=== PATIENT | male | born 1975 | race American Indian/Alaskan Native ===

== ENCOUNTER 2019-02-20 11:12 | Emergency (ER) | payer SELFPAY ==
--- NOTE | 2019-02-20 11:48 | Emergency Department Report ---
Blank Doc - Documentation Documentation: 43-year-old male that presents with right eyelid lac. This initial assessment/diagnostic orders/clinical plan/treatment(s) is/are subject to change based on patient's health status, clinical progression and re- assessment by fellow clinical providers in the ED. Further treatment and workup at subsequent clinical providers discretion. Patient/guardians urged not to elope from the ED as their condition may be serious if not clinically assessed and managed. Initial orders include: 1- Patient sent to [facility] for further evaluation and treatment
[2019-02-20] MEDS ORDERED: TETANUS,DIPH,PERTUSS(ACELL) VACCINE 0.5 ML SYRINGE IM ONE (14:46)
[2019-02-20] MEDS ORDERED: LIDOCAINE (1%) 10 MG/1 ML VIAL 20 ML MDV INFILTRATI ONE (14:46)
--- NOTE | 2019-02-20 15:28 | Emergency Department Report ---
ED General Adult HPI - General Chief complaint: Wound/Laceration Stated complaint: LFT EYE LAC Time Seen by Provider: 02/20/19 11:47 Source: patient Mode of arrival: Ambulatory Limitations: No Limitations - History of Present Illness Initial comments: 43-year-old -[place] male patient presents with complaints of laceration to nose and right face after tripping and falling today. Patient states he did not hit his head, however his glasses cut his face when he fell. He denies the lenses breaking. He rates his pain as 3/10 in severity and denies any possibility of foreign bodies. She admits to right-sided eye pain and photophobia. Patient denies any headaches, vision changes, neck pain, dizziness, syncope, or nausea/vomiting. - Related Data Previous Rx's Medication Instructions Recorded Last Taken Type Acetaminophen/Codeine [Tylenol 1 tab PO Q6H PRN #10 tab 02/20/19 Unknown Rx /Codeine # 3 tab] Erythromycin [Erythromycin Ophth 1 cm OU Q4H 7 Days #1 tube 02/20/19 Unknown Rx Oint] Ibuprofen [Motrin 800 MG tab] 800 mg PO Q8HR PRN #21 tablet 02/20/19 Unknown Rx Allergies Allergy/AdvReac Type Severity Reaction Status Date / Time No Known Allergies Allergy Unverified 02/20/19 11:22 ED Review of Systems ROS: Stated complaint: LFT EYE LAC Other details as noted in HPI ED Past Medical Hx - Past Medical History Previous Medical History?: No - Surgical History Past Surgical History?: No - Social History Smoking Status: Current Every Day Smoker Substance Use Type: Marijuana - Medications Home Medications: Home Medications Medication Instructions Recorded Confirmed Last Taken Type Acetaminophen/Codeine [Tylenol 1 tab PO Q6H PRN #10 tab 02/20/19 Unknown Rx /Codeine # 3 tab] Erythromycin [Erythromycin Ophth 1 cm OU Q4H 7 Days #1 tube 02/20/19 Unknown Rx Oint] Ibuprofen [Motrin 800 MG tab] 800 mg PO Q8HR PRN #21 tablet 02/20/19 Unknown Rx ED Physical Exam - General Limitations: No Limitations General appearance: alert, in no apparent distress - Head Head exam: Absent: atraumatic - Expanded Head Exam Expanded 1 - 3 cm laceration with flap. Leading controlled. No foreign bodies noted. 2 - Second 3 cm long noted with bleeding controlled. No foreign bodies noted in the wound. 3 - Small abrasion noted with bleeding well controlled - Eye Eye exam: Present: normal appearance, PERRL, EOMI, other (approximately 1 cm abrasion noted across lower portion of right pupil) - Expanded Eye Exam Expanded Pupils: Regular, Round: Bilateral Sclera/Conjunctival: Injection: Right ED Course Vital Signs 02/20/19 02/20/19 11:47 13:14 Temperature 97.6 F Pulse Rate 79 Respiratory 18 15 Rate Blood Pressure 132/86 O2 Sat by Pulse 99 Oximetry - Laceration /Wound Repair face Wound Location: face Wound Length (cm): 3 (to 3 cm wounds) Wound's Depth, Shape: linear (3 cm wound below first laceration), flap (3 cm wou nd with flap just below right eye) Irrigated w/ Saline (ccs): 100 Betadine Prep?: Yes Wound Repaired With: Dermabond Sterile Dressing Applied?: Yes Progress: Multiple bleeding during procedure. Patient tolerated procedure well. ED Medical Decision Making - Medical Decision Making Patient presents for multiple lacerations to face after her fall resulted in his metal portion of his glasses cutting his face. Patient also noted to have a corneal abrasion of the right eye. Lacerations repair using Dermabond and steri strips given proximity to lower eyelid. Patient to discharge home with e rythromycin ointment for the corneal abrasion and ophthalmology follow-up. Discussed wound care and signs and symptoms of infection in detail with patient who states understanding. Also discussed strict return precautions with patient who states understanding. Critical care attestation.: If time is entered above; I have spent that time in minutes in the direct care of this critically ill patient, excluding procedure time. ED Disposition Clinical Impression: Facial laceration Qualifiers: Encounter type: initial encounter Qualified Code(s): S01.81XA - Laceration without foreign body of other part of head, initial encounter Right corneal abrasion Qualifiers: Encounter type: initial encounter Qualified Code(s): S05.01XA - Injury of conjunctiva and corneal abrasion without foreign body, right eye, initial encounter Disposition: DC-01 TO HOME OR SELFCARE Is pt being admited?: No Condition: Stable Instructions: Corneal Abrasion (ED), Laceration (ED), Skin Adhesive Care (ED) Prescriptions: Erythromycin [Erythromycin Ophth Oint] 1 cm OU Q4H 7 Days #1 tube Ibuprofen [Motrin 800 MG tab] 800 mg PO Q8HR PRN #21 tablet PRN Reason: Pain, Moderate (4-6) Acetaminophen/Codeine [Tylenol /Codeine # 3 tab] 1 tab PO Q6H PRN #10 tab PRN Reason: Pain , Severe (7-10) Referrals: FLORA DOTY MD [Staff Physician] - 2-3 Days
[2019-02-20] MEDS ORDERED: HYDROGEN PEROXIDE 118 ML SOLUTION TP ONE (16:18)
[2019-02-20] MEDS ORDERED: HYDROGEN PEROXIDE 118 ML SOLUTION ONE (16:20)
[2019-02-20] MEDS ORDERED: FLUORESCEIN 1 MG STRIP OP ONE ×2 (16:35→16:39)
[2019-02-20] MEDS ORDERED: TETRACAINE 0.5% OPHTH SOLN 4ML OU STA (16:35)
[2019-02-20] MEDS ORDERED: TETRACAINE 0.5% OPHTH SOLN 4ML ONE (16:39)
[2019-02-20 17:37] VITALS: BP 140/87
== END 2019-02-20 17:37 | disposition home or self-care (01) ==
LOC: ED 11:12
DX: S01.111A Laceration without foreign body of right eyelid and periocular area, initial encounter (principal); S05.01XA Injury of conjunctiva and corneal abrasion without foreign body, right eye, initial encounter; F17.200 Nicotine dependence, unspecified, uncomplicated; F12.10 Cannabis abuse, uncomplicated; Z79.899 Other long term (current) drug therapy; W25.XXXA Contact with sharp glass, initial encounter; Y93.89 Activity, other specified; Y92.89 Other specified places as the place of occurrence of the external cause; Y99.8 Other external cause status
CPT/HCPCS: 90471; 90715